=== PATIENT | female | born 1930 | race Caucasian/White ===

== ENCOUNTER → 2018-01-24 | Outpatient (CLI) | payer MEDICARE, OTHER ==
--- NOTE | 2018-01-24 12:08 | KCIC ---
Bone mineral density study dated 01/24/2018. Indication: Osteoporosis. Findings: Lower lumbar spine: BMD (g/cm2): Total L1-L4.......... 0.903. . T-Score: Total L1-L4.................... -1.3. Left Hip: BMD (g/cm2): Total .......... 0.752. . T-Score: Total .................... -1.6. World Health Organization criteria for BMD interpretation classify patients as Normal (T-score at or above -1.0), Osteopenic (T-score between -1.0 and -2.5), or Osteoporotic (T-score at or below -2.5). Impression: Bone mineral densities in the left hip and lower lumbar spine correlate with osteopenia. Electronically signed by: Bigg Westfall MD (01/24/2018 12:04 PM) [id number]
== END | disposition home or self-care (01) ==
LOC: KCIC DEXA 10:54
PROVIDERS: ATTEND Physician Assistant Surgical
DX: Z13.820 Encounter for screening for osteoporosis (principal); E11.9 Type 2 diabetes mellitus without complications; Z87.310 Personal history of (healed) osteoporosis fracture
CPT/HCPCS: 77080